=== PATIENT | male | born 1980 | race Caucasian/White ===

== ENCOUNTER 2016-07-05 12:32 | Emergency (ER) | payer BC, MEDICARE ==
[~2016-07-05] VITALS: Ht 185.4 cm; Wt 113.6 kg
[2016-07-05 14:44] VITALS: BP 130/75
== END 2016-07-05 15:13 | disposition home or self-care (01) ==
LOC: EMS 12:34
DX: M75.42 Impingement syndrome of left shoulder (principal)
CPT/HCPCS: 93005; 99283

== ENCOUNTER 2017-12-25 09:54 | Emergency (ER) | payer BC, OTHER ==
[~2017-12-25] VITALS: Ht 185.4 cm; Wt 118.2 kg
[2017-12-25] MEDS ORDERED: MORPHINE SULFATE 4 MG/ML SYRINGE IVP ONE (11:15)
[2017-12-25] MEDS ORDERED: LIDOCAINE HCL 5% TRANSDERMAL PATCH TD ONE (11:15)
[2017-12-25] MEDS ORDERED: CYCLOBENZAPRINE HCL 10 MG TABLET PO ONE (11:15)
[2017-12-25] MEDS ORDERED: KETOROLAC TROMETHAMINE 30 MG/ML VIAL IVP ONE (11:15)
[2017-12-25 13:05] VITALS: BP 135/88
== END 2017-12-25 13:09 | disposition home or self-care (01) ==
LOC: EMS 09:56
DX: M54.5 Low back pain (principal); F12.90 Cannabis use, unspecified, uncomplicated
CPT/HCPCS: 96374; 96375; 99284; J1885; J2270

== ENCOUNTER 2022-12-01 12:36 | Emergency (ER) | payer OTHER ==
[~2022-12-01] VITALS: Ht 182.9 cm; Wt 131.8 kg
[2022-12-01 12:42] VITALS: TEMP 97.9
[2022-12-01] MEDS ORDERED: KETOROLAC TROMETHAMINE 30 MG/ML VIAL IM ONE (14:15)
[2022-12-01] MEDS ORDERED: LIDOCAINE 5% TRANSDERMAL PATCH TD ONE (14:15)
[2022-12-01] MEDS ORDERED: HYDROCODONE/ACETAMINOPHEN 5-325 MG TABLET PO ONE (14:15)
[2022-12-01 16:40] VITALS: BP 126/75; PULSE 67; RESP 17
[2022-12-01] MEDS ORDERED: CYCL-448 PO (17:40)
== END 2022-12-01 17:59 | disposition home or self-care (01) ==
LOC: EMS 12:49
DX: S79.922A Unspecified injury of left thigh, initial encounter (principal); F12.90 Cannabis use, unspecified, uncomplicated; X58.XXXA Exposure to other specified factors, initial encounter; Y93.89 Activity, other specified; Y92.89 Other specified places as the place of occurrence of the external cause; Y99.8 Other external cause status
CPT/HCPCS: 99285; 93971; 73503; 96372; J1885